=== PATIENT | female | born 1995 | race Caucasian/White ===

== ENCOUNTER 2018-09-21 12:53 | Inpatient (IN) | payer OTHER ==
[2018-09-21 13:59] LABS: PLATELET COUNT 271 10^3/uL (150-400)
--- NOTE | 2018-09-21 14:03 | EDPHY ---
H & P Time Seen by Provider: 09/21/18 13:20 HPI/ROS: HPI Depression. Suicidal thoughts. 23-year-old female by private vehicle. This patient has a history of psychiatric problems. She reports that she moved back to [place] from [place] and [place] attending college their last June. She has been on a 4 year relationship. This relationship broke up recently. She reports that she has been feeling much more depressed lately. She has had tangential suicidal thoughts and borderline thoughts. She does not have a plan for suicide. She has been treated at [facility] in the past. She feels she needs an evaluation and needs help. There is no history of trauma. She denies any drugs or alcohol. ROS: Constitutional: No fever, no chills. No weakness. Eyes: No discharge. No changes in vision. ENT: No sore throat. No nasal congestion or rhinorrhea. Respiratory: No cough. No shortness of breath. Cardiac: No chest pain, no palpitations. Gastrointestinal: No abdominal pain, no vomiting, no diarrhea. Genitourinary: No hematuria. No dysuria or increased frequency with urination. Musculoskeletal: No back pain. No neck pain. No myalgias or arthralgias. Skin: No rashes. Neurological: No headache. No focal weakness or altered sensation. Past medical history: Depression, PTSD, anxiety, borderline personality disorder. 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 She drinks alcohol socially. Last drink was yesterday. Nonsmoker. Denies IV drugs and street drugs. Physical Exam: General Appearance: Alert, she is not in distress. This patient is responding to questions appropriately and in full sentences. This patient appears well- hydrated and well-nourished. Eyes: Pupils equal and round no pallor or injection. No lid edema, erythema or injection. Respiratory: There are no retractions, lungs are clear to auscultation with good air movement bilaterally. Cardiovascular: Regular rate and rhythm. No murmur. Gastrointestinal: Abdomen is soft and nontender, no masses, bowel sounds normal. No focal tenderness at McBurney's point. No Campuzano sign. Neurological: Motor sensory function is grossly intact. Cranial nerves are normal. Gait is normal. Skin: Warm and dry, no rashes. Musculoskeletal: Neck is supple and nontender. Extremities are symmetrical. All joints range without pain or impingement. Psychiatric: No agitation. Flat affect. Database: EKG: Imaging: Procedures: Emergency department course: Triage vital signs reviewed and are normal. Appropriate blood work and urine tox screens sent. Patient medically cleared at 2:00 p.m.. [facility] is aware and will evaluate the patient shortly. 4:50 p.m., the patient has been seen and evaluated by [facility]. The patient will be admitted to [facility]. She is still voluntary. I filled out the appropriate transfer paperwork. She was transferred in stable condition with a friend who will drive her there. The accepting psychiatrist is Dr. Acosta. Her remaining emergency department course under my care has been uneventful. Differential Diagnosis: The differential diagnosis on this patient includes but is not limited to situational depression, major depression, suicidal ideation. This represents a partial list of diagnoses considered. These considerations are based on history , physical exam, past history, reassessment and diagnostic testing. Smoking Status: Current every day smoker Constitutional: Initial Vital Signs Temperature (C) 37.2 C 09/21/18 13:15 Heart Rate 85 09/21/18 13:15 Respiratory Rate 16 09/21/18 13:15 Blood Pressure 130/88 H 09/21/18 13:15 O2 Sat (%) 99 09/21/18 13:15 O2 Delivery Mode Room Air Allergies/Adverse Reactions: No Known Allergies Allergy (Unverified 09/21/18 13:14) Home Medications: Medication Instructions Recorded Depo-Provera 150 mg/ml (*) 1 each IM Q90D 09/21/18 Prazosin HCl [Minipress 5mg (*)] 5 mg PO HS 09/21/18 QUEtiapine FUMARATE [Seroquel 100 300 mg PO HS 09/21/18 mg (*)] Venlafaxine HCl [Venlafaxine HCl 225 mg PO DAILY 09/21/18 ER] Medical Decision Making - Data Points Laboratory Results: Laboratory Results 09/21/18 13:35 09/21/18 13:35 09/21/18 09/21/18 09/21/18 13:35 13:35 13:35 WBC 5.64 10^3/uL 10^3/uL (3.80-9.50) RBC 4.83 10^6/uL 10^6/uL (4.18-5.33) Hgb 14.9 g/dL g/dL (12.6-16.3) Hct 44.7 % % (38.0-47.0) MCV 92.5 fL fL (81.5-99.8) MCH 30.8 pg pg (27.9-34.1) MCHC 33.3 g/dL g/dL (32.4-36.7) RDW 12.7 % % (11.5-15.2) Plt Count 271 10^3/uL 10^3/uL (150-400) MPV 9.7 fL fL (8.7-11.7) Neut % (Auto) 59.5 % % (39.3-74.2) Lymph % (Auto) 27.7 % % (15.0-45.0) Green % (Auto) 6.4 % % (4.5-13.0) Eos % (Auto) 5.1 % % (0.6-7.6) Baso % (Auto) 1.1 % % (0.3-1.7) Nucleat RBC Rel Count 0.0 % % (0.0-0.2) Absolute Neuts (auto) 3.36 10^3/uL 10^3/uL (1.70-6.50) Absolute Lymphs (auto) 1.56 10^3/uL 10^3/uL (1.00-3.00) Absolute Monos (auto) 0.36 10^3/uL 10^3/uL (0.30-0.80) Absolute Eos (auto) 0.29 10^3/uL 10^3/uL (0.03-0.40) Absolute Basos (auto) 0.06 10^3/uL 10^3/uL (0.02-0.10) Absolute Nucleated RBC 0.00 10^3/uL 10^3/uL (0-0.01) Immature Gran % 0.2 % % (0.0-1.1) Immature Gran # 0.01 10^3/uL 10^3/uL (0.00-0.10) Sodium 139 mEq/L mEq/L (135-145) Potassium 3.8 mEq/L mEq/L (3.5-5.2) Chloride 105 mEq/L mEq/L (97-110) Carbon Dioxide 24 mEq/l mEq/l (22-31) Anion Gap 10 mEq/L mEq/L (6-14) BUN 10 mg/dL mg/dL (7-23) Creatinine 0.7 mg/dL mg/dL (0.6-1.0) Estimated GFR > 60 Glucose 107 mg/dL H mg/dL (70-100) Calcium 9.8 mg/dL mg/dL (8.5-10.4) Beta HCG, Qual NEGATIVE Urine Opiates Screen Urine Barbiturates Ur Phencyclidine Scrn Ur Amphetamine Screen U Benzodiazepines Scrn Urine Cocaine Screen U Marijuana (THC) Screen Ethyl Alcohol < 10 mg/dL mg/dL (0-10) 09/21/18 13:20 WBC RBC Hgb Hct MCV MCH MCHC RDW Plt Count MPV Neut % (Auto) Lymph % (Auto) Green % (Auto) Eos % (Auto) Baso % (Auto) Nucleat RBC Rel Count Absolute Neuts (auto) Absolute Lymphs (auto) Absolute Monos (auto) Absolute Eos (auto) Absolute Basos (auto) Absolute Nucleated RBC Immature Gran % Immature Gran # Sodium Potassium Chloride Carbon Dioxide Anion Gap BUN Creatinine Estimated GFR Glucose Calcium Beta HCG, Qual Urine Opiates Screen NEGATIVE (NEGATIVE) Urine Barbiturates NEGATIVE (NEGATIVE) Ur Phencyclidine Scrn NON-NEGATIVE H (NEGATIVE) Ur Amphetamine Screen NEGATIVE (NEGATIVE) U Benzodiazepines Scrn NEGATIVE (NEGATIVE) Urine Cocaine Screen NEGATIVE (NEGATIVE) U Marijuana (THC) Screen NON-NEGATIVE H (NEGATIVE) Ethyl Alcohol Departure - Departure Disposition: [facility] IP Clinical Impression: Situational depression, Suicidal ideation Referrals: NONE *PRIMARY CARE P,. [Primary Care Provider] - As per Instructions
--- NOTE | 2018-09-21 18:31 | ASMTTCLDSP ---
TLC Discharge Disposition Disposition: Answers: Admit Discharge Concerns/Recommendations: Notes: Per directive and order from [facility] on-call psychiatrist, Patrick Emerson MD, Dr. Emerson agreed to accept pt for voluntary admission to . Was patient given the Answers: Yes Inpatient [facility] Prohibited Belongings List while in the ED? For inpatient Patrick Emerson MD admission, the following psychiatrist agreed to accept patient for admission to [facility] ([facility]): Date Signed: 09/21/2018 06:30 PM Electronically Signed By:Milka Langford
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
[2018-09-21] MEDS ORDERED: MAGNESIUM HYDROXIDE 30 ML UDCUP PO PRN (19:25)
[2018-09-21] MEDS ORDERED: ACETAMINOPHEN 325 MG TAB PO PRN (19:25)
[2018-09-21] MEDS ORDERED: MAG HYDROX/AL HYDROX/SIMETH 30 ML UDCUP PO PRN (19:25)
[2018-09-21] MEDS ORDERED: NICOTINE POLACRILEX 2 MG GUM B PRN (20:05)
[2018-09-21] MEDS: LORazepam 0.5 MG TAB PO PRN (21:03)
[2018-09-21] MEDS: PRAZOSIN HCL 5 MG CAP PO SCH (21:04)
[2018-09-21] MEDS: QUEtiapine FUMARATE 300 MG TAB PO SCH (21:04)
[2018-09-22] MEDS: VENLAFAXINE XR 75 MG CAP PO SCH (07:54)
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
--- NOTE | 2018-09-22 09:32 | GCON ---
[f rep st] CONSULTATION DATE OF CONSULTATION: 09/22/2018 REFERRING PHYSICIAN: Patrick Emerson MD REASON FOR CONSULTATION: Medical management. HISTORY OF PRESENT ILLNESS: A 23-year-old transgender male who prefers the pronounced he/they. He presented voluntary to ED requesting mental health evaluation for increased depression and suicidal thoughts. Does not have a plan. He has had suicidal ideations every day for the past 2 weeks after ending a 4-year relationship. His boyfriend was living with him. He has been struggling with his depression and borderline tendencies and trying not to " lose control." Has had 2 prior suicide attempts, 1 in high school and 1 in college. Denies fevers, chills, or sweats. No nausea, vomiting, diarrhea. Has had decreased appetite and oral intake. Has only been sleeping 3-4 hours a night. Has severe insomnia. REVIEW OF SYSTEMS: I completed a 10-point review of systems, negative except as noted in HPI. PAST MEDICAL HISTORY: Borderline personality, depression, previously hospitalized at [facility] at 18 years old. PAST SURGICAL HISTORY: Appendectomy, wisdom teeth. FAMILY HX: no cancer MEDICATIONS: Seroquel 300. ALLERGIES: None. SOCIAL HISTORY: Lives in [place] with his father. Smokes 2-3 cigarettes a day. 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 Drinks 1-2 pints of beer daily. No drugs. PHYSICAL EXAMINATION: VITAL SIGNS: Temperature 36.9, blood pressure 107/60, heart rate is in 90s, respirations 16, 94% on room air. GENERAL: No acute distress. HEENT: PERRLA. Moist mucous membranes. CV: Regular rate and rhythm. LUNGS: Clear. ABDOMEN: Soft, nontender. : No Hinson. MUSCULOSKELETAL: 5/5 upper and lower extremity strength. NEURO: 2 through 12 intact. PSYCH: Alert and oriented x3. Flat affect. LABS: CBC is within normal. Sodium 139, potassium 3.8, chloride 105, carbon dioxide 24, BUN 10, creatinine 0.7, glucose 107. LFTs, cholesterol screening negative. A1c 5.3. ASSESSMENT AND PLAN: 1. Suicidal ideations: No plan. Patient voluntarily presented for help. Inpatient management per behavioral health team. 2. Tobacco use. Declines gum or patch. 3. Alcohol use. Counseled on cessation. DISPOSITION: Thank you for this consultation. Please call if any questions. /[id number]/MODL MTDD
--- NOTE | 2018-09-22 10:10 | PDMN ---
Medical Necessity Medical necessity: Pt meets inpt criteria per MD order and [facility], Major Depressive Disorder, Adult: Inpatient Care, 3 days. 23 y/o presenting w/ increased depression admitted w/major depressive disorder, generalized anxiety disorder, PTSD, and adjustment disorder w/disturbance of emotion, requires continued inpt psychiatric care because of current depression and recent suicidal ideation.
[2018-09-22] MEDS: LORazepam 0.5 MG TAB PO PRN ×2 (11:56→21:07)
--- NOTE | 2018-09-22 13:14 | ASMTBHMTP ---
Master Treatment Plan Master Treatment Plan Answers: Depressed Mood with for: Suicidal Ideation Date: 09/22/2018 Diagnosis on Admission: Unspecified Depressive Disorder 311 (F32.9) Generalized Anxiety Disorder 300.02 (F41.1) Borderline Personality Disorder 301.83 (F60.3) Expected length of stay: 3 Reason for admission: Notes: The patient reported that he recently ended a four year relationship and was managing the depressive and anxious symptoms but is unable to manage his BPD. The patient endorsed suicidal thoughts with no plan nor intent. The patient reported that his partner "dropped all contact" triggering the patient's fear abandonment resulting in the patient obsessively checking his phone, "chain smoking," not eating or sleeping, and calling out of work. Patient's stated presenting problems: Notes: The patient reported inpatient hospitalization approximately four or five years ago. Patient's goals for treatment: Notes: The patient stated, "I'd like better ways to deal with my borderline tendencies." Patient's strengths: Notes: The patient stated, "I'm strong, dedicated, driven, and stubborn." Identify supports outside of hospital: Notes: The patient is supported outside of the hospital by his "father and one friend." Discharge criteria: Notes: Suicidal ideation will resolve and patient will have a plan to safely manage recurrent suicidal ideation. Initial disposition plan/considerations: Notes: The patient will return home, to his routine, self-care, and follow up services. Master Treatment Plan Required Signatures Psychiatrist signature: Answers: Psychiatrist: RN on-shift signature: Answers: RN: Patient signature: Answers: Patient: Date Signed: 09/22/2018 01:13 PM Electronically Signed By:Cintia Ko
--- NOTE | 2018-09-22 13:20 | ASMTCMCOM ---
CM Note CM Note Notes: CC left a voice mail for Nasima at [facility] to notify the patient's employer of his hospital admission. CC left a voice mail for Shiraz Carrasco to reschedule the patient's upcoming therapy appointment as well as to discuss collateral and collaborate regarding the patient's care. Date Signed: 09/22/2018 01:19 PM Electronically Signed By:Cintia Ko
[2018-09-22] MEDS: QUEtiapine FUMARATE 300 MG TAB PO SCH (21:04)
[2018-09-22] MEDS: PRAZOSIN HCL 5 MG CAP PO SCH (21:05)
[2018-09-23 07:03] VITALS: BP 104/63
[2018-09-23] MEDS: VENLAFAXINE XR 75 MG CAP PO SCH (08:27)
[2018-09-23] MEDS: LORazepam 0.5 MG TAB PO PRN (12:41)
--- NOTE | 2018-09-23 16:43 | ASMTBHDC ---
Notes Note: Notes: Pt. reports feeling "much better". Pt. reports he "actually slept". Pt. reports he is "eating more than ever eat". Pt. reports attending "every group". Pt. reports feeling "so much better on Ativan", stating he feels "loopy and disaccociates" while on hydroxyzine. Pt. reports feeling safe going home. Pt. reports his dad is flying home today and will be home for a few days. Pt. reports he wrote a letter to his ex, reading this letter to his ex and that his ex will be leaving his home in a week. Pt. reports wanting to discharge either tonight or tomorrow morning. Pt. reports he is able to schedule follow up appointments on his own. Pt. provided CC with additional phone number for therapist, Taran. Pt. denied SI, HI, AVH and paranoia. Pt. presents as alert, calm, good eye contact, groomed, friendly, and cooperative. Staff report pt. sleeping 7.5 hours and being medication compliant. Pt. has an appointment with Taran on 09/29/18 @5:30pm. Pt. agreed to follow up with PCP and [facility] for a prescriber. Date Signed: 09/23/2018 04:42 PM Electronically Signed By:Lynda Lewis
--- NOTE | 2018-09-23 21:32 | BDS ---
[f rep st] BEHAVIORAL HEALTH DISCHARGE SUMMARY Patient is a 23-year-old female who prefers masculine pronouns. She presented to the [facility] ED by private vehicle. She reports that she had moved back to [place] from [place] where she attended college. She returned to live with her father in [place], [place] in June of 2018. She says that she just ended a 4-year relationship. She reports that she has been feeling more depressed lately. She was having thoughts of suicide, but did not have a plan. The patient presented voluntarily to the ED requesting a mental health evaluation for increased depression and suicidal thoughts. When asked whether or not she felt that she needed to be hospitalized, the patient said "it's a strong possibility." ADMITTING DIAGNOSES: 1. Major depressive disorder, recurrent, severe. 2. Generalized anxiety disorder. 3. Posttraumatic stress disorder. 4. Adjustment disorder with disturbance of emotion. ADMITTING PHYSICAL EXAMINATION: Done by Dr. Nasima Milton. Please see her H and P for details. There were no abnormal physical findings. ADMISSION LABS: CBC was within normal. Sodium was 139, potassium 3.8, chloride 105, carbon dioxide 24, BUN 10, creatinine 0.7, glucose was 107. LFTs , cholesterol screening were both negative. Hemoglobin A1c was 5.3. HOSPITAL COURSE: The patient was seen on day of admission by the psychiatric nurse practitioner, Fausto Armenta. NICOLE Armenta discussed the patient's current medications. The patient said that she has been treated for PTSD, generalized anxiety and major depressive disorder with Effexor for mood symptoms. Seroquel he takes at night for insomnia related to depression and he is taking prazosin 5 mg p.o. at bedtime for nightmares and PTSD-related symptoms. The patient did acknowledge that her increased thoughts of suicide and her worsening depression were due to the fact that she had just broken up with her partner of 4 years and that her partner was living in the same house with the patient's family. The patient stated that she did not want the partner to be homeless, but the partner has been spending nights away from home, and the patient says that he does not know if the partner is safe or if the partner is seeing somebody else. The patient said that most of her depression was due to "feelings of abandonment" and caused by her partner's behavior. On the inpatient unit, the patient was able to talk about her feelings and her difficulties coming to a resolution about the breakup with her partner. When she was in group therapy and during her interactions with the mental health workers and other staff member, she said that they were great support and that she found the group therapy and treatment planning on the unit very effective for helping her to deal with her psychosocial stressors. She said that she was also able to speak at length with her father, who did not feel like it was a good idea for the patient's partner to continue to live at home with them. The patient said that he came to realize that his father was right and that he was interested in setting some limits and wrote a long letter to his partner, that his partner read. The patient states that the partner was given 2 options, either that they could end their relationship but the partner could continue to live at home, but that they would stay in separate parts of that house, or that if the partner wanted the relationship to be over that the partner needed to move out. The partner said that he thought it was a good idea for him to leave the home and for the patient and the partner to cut off all contact and communication with each other. The patient said that this gave him a great deal of relief and peace of mind and that once he had come to this resolution with his partner, he was no longer having any thoughts of suicide and his mood was significantly improved and that his anxiety was much less. When this MD met with the patient on day of discharge, the patient said that he was feeling "much better," that he was no longer having any thoughts of suicide and did not have any plans or intents to hurt himself or anyone else. The partner said that he plans to follow up with his outpatient therapist at [facility], which is a [facility] in [place] that specializes in treatment with queer and transgender youth. The patient said that he planned to return home and stay at his father's house in [place], and that he had a friend Tim who was going to check on him. The patient said that his father had worked out an arrangement and given his partner 2 more weeks to stay in the house, but that they would stay in separate parts of the house and that they would avoid having contact with each other until the partner moved out. The patient said that he was very comfortable with this plan, and continued to reiterate that it was a great relief and that his mind was at peace about the break-up in their relationship and that he was no longer feeling depressed or suicidal. The patient also mentioned to the MD that he had run out of his medications that were currently being prescribed by his primary care physician. The long term care administrator on the unit, attempted to call the patient's outpatient primary care office [facility], but they were not available on the weekend and the long term care administrator was not able to leave a message. The patient said that he would contact his PCP first thing on Tuesday and get refills on all his medications. MD told the patient that he would be able to provide the patient with 1 week's worth of medications until he could connect with his PCP. The patient states that he has requested a referral to a psychiatrist from his therapist Taran and will follow up with Taran on Tuesday to get that appointment scheduled. CONDITION AT DISCHARGE: Patient was stable, was in an upbeat mood. The patient stated that he was feeling more optimistic and excited about his future now that he had reached a resolution with his partner. DISCHARGE MEDICATIONS: The patient was given 1 week supply of his medications including Effexor XR 225 mg p.o. daily, prazosin 5 mg p.o. at bedtime, and Seroquel 300 mg p.o. at bedtime. The patient stated that he would follow up on Tuesday with his PCPs office to get refills on all of his medications. DISCHARGE DIAGNOSES: 1. Adjustment disorder, mixed disturbance of conduct and mood. 2. Major depressive disorder, recurrent, severe, without psychotic features by history. 3. Generalized anxiety disorder by history. 4. Posttraumatic stress disorder by history. 5. Rule out borderline personality disorder. DISPOSITION: The patient was picked up by his father who had just flown back in town from a business trip. Father stated that he would be staying at home with the patient and would make sure that the patient followed up with his outpatient providers including his therapist and his PCP on Tuesday. LEGAL COURSE: The patient was on a voluntary basis prior to his discharge. /[id number]/MODL [id number]
== END 2018-09-23 17:05 | disposition home or self-care (01) | DRG 885 ==
LOC: BBEH 18:12
PROVIDERS: ADMIT Psychiatry & Neurology Psychiatry; ATTEND Psychiatry & Neurology Psychiatry
DX: F33.2 Major depressive disorder, recurrent severe without psychotic features (principal); F43.23 Adjustment disorder with mixed anxiety and depressed mood; F60.3 Borderline personality disorder; F43.10 Post-traumatic stress disorder, unspecified; F17.210 Nicotine dependence, cigarettes, uncomplicated; F64.0 Transsexualism
CPT/HCPCS: 80305; G0480